=== PATIENT | male | born 1980 | race Caucasian/White ===

== ENCOUNTER 2022-05-19 12:28 | Emergency (ER) | payer MEDICARE, OTHER ==
[~2022-05-19] VITALS: Ht 177.8 cm; Wt 90.7 kg
[~2022-05-19 12:28] MED LIST: Bactrim Ds Tab1 EACH PO; CEPH500 PO; CLIN300 PO; MUPI2TO TOP; SULTRIDS PO
[2022-05-19] MEDS ORDERED: Bactrim Ds Tab1 EACH PO (13:42)
[2022-05-19] MEDS ORDERED: CEPH500 PO (13:42)
== END 2022-05-19 14:09 | disposition home or self-care (01) ==
LOC: ER 12:28
DX: L03.312 Cellulitis of back [any part except buttock and flank] (principal); L91.8 Other hypertrophic disorders of the skin; L02.212 Cutaneous abscess of back [any part, except buttock and flank]
CPT/HCPCS: 10060; 99282-25

== ENCOUNTER 2023-09-05 16:34 | Emergency (ER) | payer MEDICARE, OTHER ==
[~2023-09-05] VITALS: Ht 177.8 cm; Wt 90.7 kg
[2023-09-05 16:56] VITALS: BP 185/112
== END 2023-09-05 18:25 | disposition home or self-care (01) ==
LOC: EDBD 16:34 → ER 16:34
DX: S80.11XA Contusion of right lower leg, initial encounter (principal); W22.8XXA Striking against or struck by other objects, initial encounter; Y93.55 Activity, bike riding; Z79.899 Other long term (current) drug therapy
CPT/HCPCS: 73590; 99283-25; A9270